=== PATIENT | male | born 1950 | race Two or more races ===

== ENCOUNTER → 2018-10-02 | Outpatient (CLI) | payer OTHER ==
[~2018-10-02] MED LIST: ATACAND32 MG PO; NORVASC5 MG PO; VYTORIN 10-20 M1 TAB PO
== END | disposition home or self-care (01) ==
LOC: MAMO-SONO 08:45 → SONOGRAMA 09:03
DX: N40.1 Benign prostatic hyperplasia with lower urinary tract symptoms (principal); F52.21 Male erectile disorder; C61 Malignant neoplasm of prostate; R31.9 Hematuria, unspecified

== ENCOUNTER 2018-11-30 07:37 | Outpatient (CLI) | payer OTHER | END 2018-11-30 07:53 | disposition home or self-care (01) | LOC: MRI 07:37 | DX: N40.1 Benign prostatic hyperplasia with lower urinary tract symptoms (principal); F52.21 Male erectile disorder; C61 Malignant neoplasm of prostate; N28.1 Cyst of kidney, acquired | CPT/HCPCS: 72197; 74183; A9575 ==

== ENCOUNTER 2019-11-15 09:23 | Outpatient (CLI) | payer OTHER | END 2019-11-15 10:07 | disposition home or self-care (01) | LOC: MAMO-SONO 09:23 | PROVIDERS: ATTEND Urology | DX: N20.0 Calculus of kidney (principal) ==